=== PATIENT | female | born 1970 | race American Indian/Alaskan Native ===

== ENCOUNTER 2020-10-26 07:21 | Day surgery (SDC) | payer MEDICAID ==
[2020-10-26] MEDS ORDERED: Propofol 200 MG/20 ML SDV IV ONE (07:22)
[2020-10-26] MEDS ORDERED: Sodium Chloride 0.9% 10 ML Syringe FLUSH PRN (07:30)
[2020-10-26] MEDS ORDERED: Lactated Ringers 1,000 ML IV SCH (07:30)
--- NOTE | 2020-10-26 09:02 | PCM.OPNOTE ---
- General Post-Op/Procedure Note Date of Surgery/Procedure: 10/26/20 Operative Procedure(s): c scope with hot loop snare and cold forceps biopsy Findings: ascending colon polyps x3 transverse colon polyp x2 descending colon polyp x2 rectum x1 Pre Op Diagnosis: colon cancer screening. family hx of colon polyps Post-Op Diagnosis: ascending colon polyps x3. transverse colon polyp x2. descending colon polyp x2. rectum x1 Anesthesia Technique: MAC Primary Surgeon: Umair Laws Anesthesia Provider: Roge Cotter Pathology: ascending colon polyps x3 transverse colon polyp x2 descending colon polyp x2 rectum x1 Complications: None Condition: Good Free Text/Narrative:: see dictation [id number]
--- NOTE | 2020-10-27 09:25 | OR ---
DATE OF OPERATION: 10/26/2020 SURGEON: Umiar Laws MD PROCEDURE PERFORMED: Colonoscopy with hot loop and cold forceps biopsy. PREOPERATIVE DIAGNOSIS: Family history of colon polyps, need for colon cancer screening. POSTOPERATIVE DIAGNOSIS: Ascending colon polyps x3, transverse colon polyps x2, descending colon polyps x2, and rectal polyp x1. INDICATIONS FOR PROCEDURE: This is a 50-year-old white female with a family history of colon polyps who presents for her initial screening colonoscopy. She is currently without complaints. DESCRIPTION OF OPERATION: After an excellent IV sedation was administered, digital rectal exam was performed. No marked abnormality was noted. The flexible colonoscope was inserted and advanced to the cecum. The prep was acceptable. There were areas of liquid stool, but we were able to irrigate and get a good view of the colon. The following findings were noted. In the ascending colon, there were 3 polyps, 2 of them were biopsied with a hot loop snare and 1 with cold biopsy forceps. Photos were taken as well. These were all submitted in 1 container. Transverse colon, 2 polyps, both of these were biopsied with cold forceps and submitted in 1 container. Descending colon, again 2 polyps, biopsied with cold biopsy forceps and submitted in 1 container. Rectum, a pedunculated polyp was encountered, and this was biopsied with a hot loop snare and submitted. The sigmoid itself was unremarkable. The patient tolerated the procedure well, was taken to recovery room in good condition. Results will be sent to the patient via letter. /[id number] /MODL
== END 2020-10-26 09:53 | disposition home or self-care (01) ==
LOC: FB.SDS 07:21
PROVIDERS: ATTEND Surgery
DX: Z12.11 Encounter for screening for malignant neoplasm of colon (principal); D12.4 Benign neoplasm of descending colon; D12.8 Benign neoplasm of rectum; D17.5 Benign lipomatous neoplasm of intra-abdominal organs; E11.9 Type 2 diabetes mellitus without complications; Z79.84 Long term (current) use of oral hypoglycemic drugs; Z80.0 Family history of malignant neoplasm of digestive organs; Z79.899 Other long term (current) drug therapy; Z79.82 Long term (current) use of aspirin; Z98.890 Other specified postprocedural states
CPT/HCPCS: 00812-QZ; 82962; 88305; J2704; J7120